=== PATIENT | female | born 1985 | race Caucasian/White ===

== ENCOUNTER 2017-07-09 09:08 | Emergency (ER) | payer MEDICAID ==
[~2017-07-09] VITALS: Ht 175.3 cm; Wt 97.1 kg
[~2017-07-09 09:08] MED LIST: HYDR-3240 PO; IBUP-1223 PO
[2017-07-09 09:11] VITALS: BP 127/84
[2017-07-09] MEDS ORDERED: DEXAMETHASONE 4 MG/ML, 5ML ONE (10:09)
[2017-07-09] MEDS ORDERED: DEXAMETHASONE 4 MG/ML, 1ML PO ONE (10:30)
== END 2017-07-09 10:35 | disposition home or self-care (01) ==
LOC: ED 10:26
DX: J02.8 Acute pharyngitis due to other specified organisms (principal)
CPT/HCPCS: 99282; J1100